=== PATIENT | male | born 1950 | race African-American/Black ===

== ENCOUNTER 2019-09-08 05:55 | Inpatient (IN) | payer MEDICARE ==
[2019-09-08] MEDS ORDERED: Albumin 5% 500 ML ONE (06:13)
[2019-09-08] MEDS ORDERED: Midazolam HCl 2 mg/2 ml Vial ONE (06:30)
[2019-09-08] MEDS ORDERED: Fentanyl 100 MCG/2 ML VIAL ONE (06:30)
[2019-09-08] MEDS ORDERED: Midazolam HCl 5 mg/5 ml Vial ONE (06:30)
[2019-09-08] MEDS ORDERED: Vecuronium 10 MG VIAL ONE ×2 (06:31→12:30)
[2019-09-08] MEDS ORDERED: Dexmedetomidine 200 MCG/2 ML VIAL ONE (06:31)
[2019-09-08] MEDS ORDERED: Heparin 10,000 UNITS/1 ML VIAL 30,000 UNITS in Sodium Chloride 0.9% 1,000 ML FS SCH (06:45)
[2019-09-08 07:34] LABS: Anion Gap 13 mmol/L (10-20); BUN (Urea Nitrogen) 8 mg/dL (8.4-25.7); Calc. Creatinine Clearance 87 mL/min (70-130); Calcium 8.4 mg/dL (7.8-10.44); Carbon Dioxide 22 mmol/L (23-31); Chloride 106 mmol/L (98-107); Estimated GFR-MDRD Greater than 90; Glucose 71 mg/dL (80-115); Potassium 4.4 mmol/L (3.5-5.1); Sodium 137 mmol/L (136-145)
[2019-09-08] MEDS ORDERED: Bupivacaine PF 0.5% 30 ML VIAL ONE (10:43)
[2019-09-08] MEDS ORDERED: EPINEPHrine 1 MG/ML AMP ONE (10:43)
[2019-09-08] MEDS ORDERED: Dexamethasone 20 MG/5 ML VIAL ONE ×2 (10:46→12:30)
[2019-09-08] MEDS ORDERED: Dexamethasone 4 mg/ml Vial ONE (10:46)
[2019-09-08] MEDS ORDERED: Guaifenesin DM 100-10/5 ML UDCUP PO PRN (11:28)
[2019-09-08] MEDS ORDERED: Mag-Al 1200 mg/1200 mg/30 ML UDCUP PO PRN (11:28)
[2019-09-08] MEDS ORDERED: Nitroglycerin 50 MG/250 ML BOT 250 ML IVPB PRN (11:28)
[2019-09-08] MEDS ORDERED: Morphine 2 MG/ML SYRINGE SLOW IVP PRN (11:28)
[2019-09-08] MEDS ORDERED: Potassium Chloride 20 MEQ/100 ML PREMIX BAG IVPB PRN (11:28)
[2019-09-08] MEDS ORDERED: Bisacodyl 10 MG SUPP PR PRN (11:28)
[2019-09-08] MEDS ORDERED: Promethazine HCl 25 MG/ML VIAL IM PRN (11:28)
[2019-09-08] MEDS ORDERED: hydrALAZINE 20 MG/ML VIAL SLOW IVP PRN (11:28)
[2019-09-08] MEDS ORDERED: Hetastarch 6% 500 ML 500 ML IVPB PRN (11:28)
[2019-09-08] MEDS ORDERED: Phenylephrine 10 MG/NS 250 ML 250 ML IVPB PRN (11:28)
[2019-09-08] MEDS ORDERED: Bisacodyl 5 MG TAB PO PRN (11:28)
[2019-09-08] MEDS ORDERED: Fentanyl 100 MCG/2 ML VIAL SLOW IVP PRN (11:28)
[2019-09-08] MEDS ORDERED: Magnesium 2 GM/50 ML 2 GM in Premix Bag 1 BAG IVPB SCH (11:30)
[2019-09-08] MEDS ORDERED: D5 1/2 NS w/20 mEq KCL 1,000 ML IV SCH (11:30)
[2019-09-08] MEDS ORDERED: Dextrose 50% Abboject 50 ML SYRINGE SLOW IVP PRN (11:47)
[2019-09-08] MEDS ORDERED: Dextrose 5% in Water 1,000 ML IV PRN (11:47)
[2019-09-08 12:08] LABS: #Eosinphils 0.2 thou/uL (0.0-0.7); #Lymphocytes 2.8 thou/uL (1.20-3.40); #Monocytes 0.9 thou/uL (0.11-0.59); #Neutrophils 12.9 thou/uL (1.40-6.50); %Basophils 0.1 % (0.0-1.0); %Eosinophils 1.4 % (0.0-10.0); %Lymphocytes 16.8 % (21.0-51.0); %Monocytes 5.5 % (0.0-10.0); %Neutrophils 76.2 % (42.0-75.0); Hemoglobin 11.6 g/dL (14.0-18.0); Mean Corpuscular HGB CONC 32.7 g/dL (32.0-36.0); Mean Corpuscular Hemoglobin 31.8 pg (27.0-31.0); Mean Corpuscular Volume 97.2 fL (78.0-98.0); Platelet Count 139 thou/uL (130-400); RBC Distribution Width 13.8 % (11.5-14.5); Red Blood Cell (RBC) Count 3.64 mill/uL (4.70-6.10); White Blood Cell (WBC) Count 16.9 thou/uL (4.8-10.8)
[2019-09-08 12:09] LABS: Actual Bicarbonate (HCO3a) 22.6 mEq/L (22-28); Base Excess (BEa) -3.8 mEq/L (-2.0 to +3.0); CO2 Tension 46.6 mmHg (35.0-45.0); Calcium, Ionized 1.05 mmol/L (1.12-1.30); Carboxyhemoglobin (COHb) 3.9 gm% (0.0-3.0); Hemoglobin (Hb) 12.1 g/dL (14.0-18.0); O2 Tension (PaO2) 88.6 mmHg (> 80.0); Potassium - ABG Lab 4.02 mmol/L (3.70-5.30)
[2019-09-08 12:10] LABS: Puncture Site LRA
[2019-09-08 12:17] LABS: INR-International Normal Ratio 1.5; PTT 29.2 SEC (22.9-36.1); Prothrombin Time 17.7 SEC (12.0-14.7)
[2019-09-08 12:29] LABS: Anion Gap 11 mmol/L (10-20); BUN (Urea Nitrogen) 9 mg/dL (8.4-25.7); Calc. Creatinine Clearance 97 mL/min (70-130); Calcium 7.4 mg/dL (7.8-10.44); Carbon Dioxide 25 mmol/L (23-31); Chloride 108 mmol/L (98-107); Estimated GFR-MDRD Greater than 90; Glucose 94 mg/dL (80-115); Potassium 4.1 mmol/L (3.5-5.1); Sodium 140 mmol/L (136-145)
[2019-09-08] MEDS ORDERED: Magnesium Sulfate 1 GM/2 ML VIAL ONE (12:30)
[2019-09-08] MEDS ORDERED: Glycopyrrolate 0.2 MG/ML 5 ML SYRINGE ONE (12:30)
[2019-09-08] MEDS ORDERED: PHENYLEPHRINE-NS 100 MCG/ML 10 ML SYRINGE ONE (12:30)
[2019-09-08] MEDS ORDERED: Protamine Sulfate 250 MG/25 ML VIAL ONE (12:30)
[2019-09-08] MEDS ORDERED: Heparin 30,000 units/30 ml VIAL ONE (12:30)
[2019-09-08] MEDS ORDERED: Potassium Chloride 60 MEQ/30 ML VIAL ONE (12:30)
[2019-09-08] MEDS ORDERED: Nitroglycerin 50 MG/250 ML BOT ONE (12:30)
[2019-09-08] MEDS ORDERED: Thrombin 5000 UNITS/5 ML VIAL ONE (12:30)
[2019-09-08] MEDS ORDERED: Lidocaine 2% PF 5 ML VIAL ONE (12:30)
[2019-09-08] MEDS ORDERED: EPHEDRINE 25 MG/5 ML SYRINGE ONE (12:30)
[2019-09-08] MEDS ORDERED: Lidocaine 1% PF 5 ML VIAL ONE ×2 (12:30)
[2019-09-08] MEDS ORDERED: Calcium Chloride 1 GM/10 ML Abboject SYRINGE ONE (12:30)
[2019-09-08] MEDS ORDERED: Heparin 5,000 UNITS/ML VIAL ONE (12:30)
[2019-09-08] MEDS ORDERED: Cardioplegic Soln 1,000 ML BAG ONE (12:30)
[2019-09-08] MEDS ORDERED: Aminocaproic Acid 5 GM/20 ML VIAL ONE (12:30)
[2019-09-08] MEDS ORDERED: Ondansetron PF 4 MG/2 ML Vial ONE (12:30)
[2019-09-08] MEDS ORDERED: Papaverine 60 MG/2 ML VIAL ONE (12:30)
[2019-09-08] MEDS ORDERED: Sodium Bicarb 50 MEQ/50 ML Abboject 8.4% SYRINGE ONE (12:30)
[2019-09-08] MEDS ORDERED: Ketorolac Tromethamine 30 MG/ML VIAL ONE (12:30)
--- NOTE | 2019-09-08 12:34 | OP ---
DATE OF PROCEDURE: 09/08/2019 PREOPERATIVE DIAGNOSES: Coronary artery disease/hypertension/dyslipidemia/chronic obstructive pulmonary disease. POSTOPERATIVE DIAGNOSIS: Coronary artery disease/hypertension/dyslipidemia/chronic obstructive pulmonary disease. PROCEDURES PERFORMED: Coronary artery bypass grafting x3; 1. Left internal mammary artery to 3.0 mm distal left anterior descending - good conduit and target. 2. Reverse saphenous vein to 4.0 mm obtuse marginal - good conduit with diffusely diseased target. 3. Reverse saphenous vein to 4.0 mm right coronary artery - good conduit with diffusely diseased target. ANESTHESIA: General endotracheal anesthesia - Dr. Cecilia Rudd. PUMP TIME: 63 minutes. CROSS-CLAMP TIME: 39 minutes. LOW-CORE TEMPERATURE: 34 degrees Celsius. SPINNER CONCRETE PIPE: Christiana Pearce. DRAINS: 24-Syrian chest tubes x2. DRIPS: None. TRANSFUSIONS: None. DESCRIPTION OF PROCEDURE: After consent was obtained, the patient was brought to the operating room and placed in supine position on the operating room table. Appropriate central line and monitors were placed and general endotracheal anesthesia was induced. Chest, abdomen, and legs were prepped and draped in usual sterile fashion. Greater saphenous vein was harvested from the left lower extremity utilizing an endoscopic technique. Wounds were irrigated and closed in layers. Median sternotomy was performed. Left internal mammary artery was harvested as a pedicle graft. The patient was systemically heparinized. Distal pedicle was divided and infused with papaverine. Thymic fat and pericardium were divided with electrocautery. Pericardial stay sutures were placed. Aortic and atrial cannulation was performed. After adequate heparinization, retrograde prime was performed and the patient was placed on cardiopulmonary bypass. Distal targets were marked. Aortic cross-clamp was applied and cardioplegic arrest obtained. 1 L of antegrade cold [place] cardioplegia was given. Topical cold solution was used. Reverse saphenous vein was anastomosed to distal RCA in end-to-side fashion with running 7-0 Prolene suture. Anastomosis was tested and was hemostatic. Reverse saphenous vein was anastomosed to the OM in end-to-side fashion with running 7-0 Prolene suture. Anastomosis was tested and was hemostatic. The mammary artery was brought through a window in the pericardium and anastomosed to the distal LAD in end-to-side fashion with running 7-0 Prolene suture. On release of mammary clamps, good hooding of the anastomosis and good distal flow. Pedicle was secured with interrupted 6-0 Prolene suture. Cross-clamp was removed and partial occluding clamp placed. Saphenous veins were anastomosed to individual punch sites in the aorta with running 6-0 Prolene suture. Partial occluding clamp was removed and graft was deaired. Anastomoses were inspected for hemostasis, which was good. The patient was warmed and weaned from cardiopulmonary bypass. After resumption of sinus rhythm, good hemodynamics, temperature greater than 36.5, bypass was discontinued. Transfusion was given. Decannulation was performed and pursestring suture secured. Protamine was administered. 24-Syrian chest tubes x2 were placed in mediastinum. Sternum was treated with vancomycin paste. After adequate hemostasis has been obtained, the sternum was closed with #7 wire. Sternum was treated with platelet-rich plasma, wires twisted and buried, wounds irrigated, treated with platelet-poor plasma and closed in multiple layers. Needle, sponge, and instrument counts were all reported as correct at the end of the procedure. The patient tolerated the procedure well, was transferred to the intensive care unit in stable, but critical condition. Job ID: [id number]
[2019-09-08] MEDS: Ketorolac Tromethamine 30 MG/ML VIAL IVP SCH ×3 (13:00→23:46)
[2019-09-08] MEDS ORDERED: Prevnar 13-Val Conj/PF 0.5 ML SYRINGE IM ONE (13:15)
[2019-09-08] MEDS ORDERED: FLU VACC TS2019-20(65YR UP)/PF 180 MCG/0.5 ML SYRINGE IM ONE (13:15)
--- NOTE | 2019-09-08 13:39 | RAD ---
PORTABLE CHEST ONE VIEW: 09/08/19 at 11:44 a.m. HISTORY: Postop open heart surgery. FINDINGS/IMPRESSION: There are changes of median sternotomy. There is a left sided chest tube and right sided subclavian c entral line with tip in the projection of the cavoatrial junction. The heart size is normal. The lung s are expanded without lobar consolidation, pneumothoraces, or pleural effusions. There are postop ch anges and metallic hardware in the right shoulder. POS: TPC
[2019-09-08] MEDS: CEFAZOLIN 2 GM in Premix Bag 1 BAG IVPB SCH ×2 (15:15→23:45)
[2019-09-08] MEDS: Insulin Regular 300 UNITS/3 ML VIAL SC PRN ×3 (15:43→23:52)
[2019-09-08] MEDS: Fentanyl 100 MCG/2 ML VIAL SLOW IVP PRN (15:51)
--- NOTE | 2019-09-08 15:58 | EKG ---
Test Reason : POST CABG Blood Pressure : / mmHG Vent. Rate : 064 BPM Atrial Rate : 064 BPM P-R Int : 310 ms QRS Dur : 170 ms QT Int : 518 ms P-R-T Axes : 080 -74 056 degrees QTc Int : 534 ms Sinus rhythm with marked sinus arrhythmia with 1st degree A-V block Right bundle branch block Left anterior fascicular block Bifascicular block Abnormal ECG No previous ECGs available Confirmed by DYANA ROA, DR. Baca ([id number]) on 09/08/2019 3:58:17 PM Referred By: Chika MARQUEZ Confirmed By:DR. Phuong TURPIN MD
[2019-09-08] MEDS: traMADol HCl 50 MG TAB PO PRN ×2 (16:28→22:04)
[2019-09-08 17:58] LABS: Hemoglobin 11.9 g/dL (14.0-18.0)
[2019-09-08 18:13] LABS: Potassium 4.5 mmol/L (3.5-5.1)
[2019-09-08] MEDS ORDERED: Famotidine/PF 20 mg/2ml Vial SLOW IVP SCH (21:00)
[2019-09-08] MEDS: Ondansetron PF 4 MG/2 ML Vial IVP PRN (22:05)
[2019-09-09] MEDS: Insulin Regular 300 UNITS/3 ML VIAL SC PRN (03:43)
[2019-09-09 04:01] LABS: #Lymphocytes 1.3 thou/uL (1.20-3.40); #Monocytes 1.1 thou/uL (0.11-0.59); #Neutrophils 9.2 thou/uL (1.40-6.50); %Basophils 0.1 % (0.0-1.0); %Eosinophils 0.1 % (0.0-10.0); %Lymphocytes 11.3 % (21.0-51.0); %Monocytes 9.2 % (0.0-10.0); %Neutrophils 79.4 % (42.0-75.0); Mean Corpuscular HGB CONC 33.1 g/dL (32.0-36.0); Mean Corpuscular Hemoglobin 32.3 pg (27.0-31.0); Mean Corpuscular Volume 97.6 fL (78.0-98.0); Mean Platelet Volume 7.6 fL (7.4-10.4); Platelet Count 134 thou/uL (130-400); RBC Distribution Width 13.8 % (11.5-14.5); Red Blood Cell (RBC) Count 3.41 mill/uL (4.70-6.10); White Blood Cell (WBC) Count 11.6 thou/uL (4.8-10.8)
[2019-09-09 04:16] LABS: Anion Gap 9 mmol/L (10-20); BUN (Urea Nitrogen) 15 mg/dL (8.4-25.7); Calc. Creatinine Clearance 71 mL/min (70-130); Calcium 7.5 mg/dL (7.8-10.44); Carbon Dioxide 25 mmol/L (23-31); Chloride 106 mmol/L (98-107); Estimated GFR-MDRD 81; Glucose 125 mg/dL (80-115); Potassium 4.3 mmol/L (3.5-5.1); Sodium 136 mmol/L (136-145)
[2019-09-09] MEDS: Ketorolac Tromethamine 30 MG/ML VIAL IVP SCH ×3 (05:58→18:06)
[2019-09-09] MEDS ORDERED: Guaifenesin DM 100-10/5 ML UDCUP PO PRN (07:24)
[2019-09-09] MEDS ORDERED: diphenhydrAMINE 25 MG CAP PO PRN (07:24)
[2019-09-09] MEDS ORDERED: Zolpidem Tartrate 5 MG TAB PO PRN (07:24)
[2019-09-09] MEDS ORDERED: Mag-Al 1200 mg/1200 mg/30 ML UDCUP PO PRN (07:24)
[2019-09-09] MEDS ORDERED: Bisacodyl 10 MG SUPP PR PRN (07:24)
[2019-09-09] MEDS ORDERED: Mineral Oil ENEMA PR PRN (07:24)
[2019-09-09] MEDS ORDERED: Artificial Tears 18 DROP/0.9 ML EA EYE PRN (07:24)
[2019-09-09] MEDS ORDERED: Bisacodyl 5 MG TAB PO PRN (07:24)
[2019-09-09] MEDS ORDERED: Nitroglycerin 0.4 MG TAB (25 Tab Bottle) SL PRN (07:24)
[2019-09-09] MEDS: CEFAZOLIN 2 GM in Premix Bag 1 BAG IVPB SCH (08:04)
--- NOTE | 2019-09-09 08:51 | RAD ---
PORTABLE CHEST: HISTORY: Postop open heart surgery. COMPARISON: Prior day's exam. FINDINGS: Heart size is within normal limits. There is postop sternotomy change. Chest tubes remain unchanged in position. Right subclavian line is unchanged. IMPRESSION: Stable chest. POS: TPC
[2019-09-09] MEDS ORDERED: Aspirin 325 MG TAB PO SCH (09:00)
[2019-09-09] MEDS ORDERED: CEFAZOLIN 2 GM in Premix Bag 1 BAG IVPB SCH (09:00)
[2019-09-09] MEDS: Pantoprazole 40 MG GRANULES PACKET PO SCH (09:08)
[2019-09-09] MEDS: Aspirin 81 mg Enteric Coated Tablet PO SCH (09:08)
[2019-09-09] MEDS: traMADol HCl 50 MG TAB PO PRN ×2 (09:13→22:39)
[2019-09-09] MEDS: Magnesium 2 GM/50 ML 2 GM in Premix Bag 1 BAG IVPB SCH (09:15)
[2019-09-09] MEDS ORDERED: DOPamine 400 MG/D5W 250 ML 250 ML ONE (10:48)
[2019-09-09] MEDS: DOPamine 400 MG/D5W 250 ML 250 ML IVPB SCH ×2 (10:50→22:31)
[2019-09-09] MEDS: Ondansetron PF 4 MG/2 ML Vial IVP PRN ×2 (10:59→18:08)
[2019-09-09] MEDS ORDERED: Promethazine HCl 12.5 MG in Sodium Chloride 0.9% 50 ML IVPB PRN (11:12)
[2019-09-09] MEDS ORDERED: Sodium Chloride 0.9% 500 ML IVPB SCH (11:15)
--- NOTE | 2019-09-09 11:43 | RAD ---
PORTABLE CHEST: HISTORY: Shortness of breath. COMPARISON: Prior day's study. FINDINGS: Heart size is enlarged with postop sternotomy changes. Right subclavian line is present, catheter ti p overlying the superior vena cava. Parenchymal lung changes are felt to be similar to the previous exam given differences in technique. IMPRESSION: Stable chest. POS: TPC
[2019-09-09] MEDS: Isoproterenol 2 MG in Dextrose 5% in Water 500 ML IVPB SCH (12:15)
[2019-09-09] MEDS: Fentanyl 100 MCG/2 ML VIAL SLOW IVP PRN ×2 (12:50→18:07)
--- NOTE | 2019-09-09 13:40 | CON ---
DATE OF CONSULTATION: Critical care note. TIME: 45 minutes. HISTORY OF PRESENT ILLNESS: The patient is a 69-year-old gentleman, who recently underwent coronary artery bypass graft surgery and was noted to become weak and hypotensive. The patient has previous history of coronary artery disease. He had underwent a recent cardiac catheterization and found to have normal left ventricular systolic function. He had a stent in the LAD with 90% stenosis, left circumflex artery had 80% stenosis, and the right coronary artery had 80% stenosis. The patient underwent coronary artery bypass surgery. The patient was on telemetry when he suddenly developed hypotension and a slow heart rate. The patient became weak and placed back in the ICU. The patient denies having any chest pain. The patient is groggy and is unable to give a coherent history. PAST MEDICAL HISTORY: 1. CAD. 2. HTN . 3. Hyperlipidemia. 4. COPD. PAST SURGICAL HISTORY: Tonsillectomy, shoulder surgery, and knee surgery. SOCIAL HISTORY: Long history of tobacco abuse. MEDICATIONS: 1. Aspirin 81. 2. Lisinopril/HCTZ 20/12.5 daily. 3. Metoprolol 25 mg p.o. b.i.d. 4. Plavix 75 daily. 5. Imdur 30 q.a.m. 6. Lipitor 80 at bedtime. PHYSICAL EXAMINATION: GENERAL: A well-developed gentleman, in no acute distress. VITAL SIGNS: Blood pressure 116/58, heart rate 58. NECK: No jugular venous distention. LUNGS: Clear to auscultation. HEART: Regular rate and rhythm. Normal S1 and S2. ABDOMEN: Distended. EXTREMITIES: Mild edema. LABORATORY RESULTS: White blood cell count 11.6, hemoglobin 11.0, hematocrit 33.3, platelets 134. Sodium 136, potassium 4.3, chloride 106, bicarbonate 25, BUN 15, creatinine 1.1. DIAGNOSTIC DATA: EKG reveals normal sinus rhythm with a second-degree AV block Mobitz type 1. IMPRESSION: 1. Mobitz type 1 2nd atrioventricular block. 2. Hypotension. 3. Status post coronary artery bypass graft. 4. Dyslipidemia. 5. Chronic obstructive pulmonary disease. This gentleman developed acute hypotension and bradycardia. He is in a second- degree heart block. The patient was started on dobutamine. I will add Isuprel to maintain his heart rate over 60. From a cardiac standpoint, his metoprolol will be discontinued. He will be monitored in ICU. Job ID: [id number] MTDD
[2019-09-09] MEDS ORDERED: Sodium Chloride 0.9% 1,000 ML IV SCH ×2 (14:00)
[2019-09-09] MEDS: Atorvastatin Calcium 40 MG TAB PO SCH (22:31)
[2019-09-09] MEDS: Tamsulosin HCl 0.4 MG CAP PO SCH (22:31)
[2019-09-10] MEDS: Ketorolac Tromethamine 30 MG/ML VIAL IVP SCH ×5 (00:08→23:05)
[2019-09-10] MEDS: Isoproterenol 2 MG in Dextrose 5% in Water 500 ML IVPB SCH (01:34)
[2019-09-10] MEDS: DOPamine 400 MG/D5W 250 ML 250 ML IVPB SCH (10:46)
[2019-09-10] MEDS: Aspirin 81 mg Enteric Coated Tablet PO SCH (10:47)
[2019-09-10] MEDS: Magnesium 2 GM/50 ML 2 GM in Premix Bag 1 BAG IVPB SCH (10:47)
[2019-09-10] MEDS: Pantoprazole 40 MG GRANULES PACKET PO SCH (11:26)
[2019-09-10] MEDS: Atorvastatin Calcium 40 MG TAB PO SCH (20:05)
[2019-09-10] MEDS: Tamsulosin HCl 0.4 MG CAP PO SCH (20:05)
[2019-09-11] MEDS: Isoproterenol 2 MG in Dextrose 5% in Water 500 ML IVPB SCH (00:06)
[2019-09-11] MEDS: DOPamine 400 MG/D5W 250 ML 250 ML IVPB SCH (00:32)
[2019-09-11] MEDS: Ketorolac Tromethamine 30 MG/ML VIAL IVP SCH ×2 (05:10→12:06)
[2019-09-11] MEDS: Aspirin 81 mg Enteric Coated Tablet PO SCH (08:26)
[2019-09-11] MEDS: traMADol HCl 50 MG TAB PO PRN (10:18)
[2019-09-11] MEDS ORDERED: Gentamicin 80 MG/2 ML VIAL ONE (13:56)
[2019-09-11] MEDS ORDERED: CEFAZOLIN 1 GM VIAL ONE (13:56)
[2019-09-11] MEDS ORDERED: Midazolam HCl 2 mg/2 ml Vial ONE (14:47)
[2019-09-11] MEDS ORDERED: Lidocaine 1% (PF) 30 ML VIAL ONE (14:53)
--- NOTE | 2019-09-11 16:43 | RAD ---
Chest one view HISTORY: Cardiac pacer placement. Dyspnea. COMPARISON: 09/09/2019. FINDINGS: Cardiac silhouette is magnified and upper limits of normal in size. Pulmonary vasculature a lso upper limits of normal. Mediastinum is midline with postoperative changes and a right subclavian central venous catheter. A new dual lead left subclavian cardiac electronic device is in place with leads overlying the right atrium and right ventricle. No evidence of pneumothorax. Hazy opacity at each lung base has the appearance of pleural fluid and atelectasis. IMPRESSION : New left subclavian cardiac pacer in good radiographic position. Bilateral pleural fluid and bibasilar atelectasis. Other findings are stable.
[2019-09-11] MEDS: Tamsulosin HCl 0.4 MG CAP PO SCH (20:38)
[2019-09-11] MEDS: Atorvastatin Calcium 40 MG TAB PO SCH (20:38)
--- NOTE | 2019-09-11 21:33 | EKG ---
Test Reason : STAT BRADYCARDIA Blood Pressure : / mmHG Vent. Rate : 052 BPM Atrial Rate : 052 BPM P-R Int : 208 ms QRS Dur : 154 ms QT Int : 516 ms P-R-T Axes : 067 -32 024 degrees QTc Int : 479 ms Sinus bradycardia Left axis deviation Non-specific intra-ventricular conduction block Abnormal ECG When compared with ECG of 08-SEP-2019 11:54, LA interval has decreased Non-specific intra-ventricular conduction block has replaced Right bundle branch block Confirmed by DYANA ROA, DR. Baca ([id number]) on 09/11/2019 9:33:32 PM Referred By: RENNY MARQUEZ Confirmed By:DR. Phuong TURPIN MD
--- NOTE | 2019-09-11 21:43 | EKG ---
Test Reason : Blood Pressure : / mmHG Vent. Rate : 049 BPM Atrial Rate : 043 BPM P-R Int : 000 ms QRS Dur : 120 ms QT Int : 478 ms P-R-T Axes : 000 -51 042 degrees QTc Int : 431 ms Sinus bradycardia with 1st degree A-V block with frequent Premature atrial complexes Left anterior fascicular block Incomplete right bundle branch block Abnormal ECG When compared with ECG of 08-SEP-2019 19:40, (Unconfirmed) QRS duration has decreased QT has shortened Confirmed by DYANA ROA, DR. Baca ([id number]) on 09/11/2019 9:42:52 PM Referred By: JIMMY Confirmed By:DR. Phuong TURPIN MD
[2019-09-12] MEDS: traMADol HCl 50 MG TAB PO PRN (02:53)
[2019-09-12] MEDS: Acetaminophen 325 MG TAB PO PRN (04:48)
[2019-09-12 05:49] VITALS: BMI 23.8
[2019-09-12] MEDS: Aspirin 81 mg Enteric Coated Tablet PO SCH (09:20)
[2019-09-12] MEDS: Atorvastatin Calcium 40 MG TAB PO SCH (23:04)
[2019-09-12] MEDS: Tamsulosin HCl 0.4 MG CAP PO SCH (23:05)
[2019-09-13] MEDS: Acetaminophen 325 MG TAB PO PRN (01:41)
[2019-09-13] MEDS ORDERED: Metoprolol Tartrate 25 MG TAB PO SCH (09:00)
[2019-09-13] MEDS: Aspirin 81 mg Enteric Coated Tablet PO SCH (09:56)
[2019-09-13] MEDS: traMADol HCl 50 MG TAB PO PRN (10:04)
--- NOTE | 2019-09-13 15:42 | CCL ---
DATE OF PROCEDURE: 09/11/19 This is a 69-year-old gentleman who is status post bypass surgery approximately two to three days ago who developed second degree heart block type II with severe bradycardia requiring chronotropic suppo rt with Dopamine. He was advised to undergo a dual chamber pacemaker insertion. He was taken to the [facility] where he underwent the procedure today without difficulties or c omplications. He was prepped and draped in a sterile fashion and the device was easily implanted afte r using sterile technique. The full dictated note can be found in the patient's chart. He was implant ed with a dual chamber pacemaker from [employer], an [place] XT dual chamber pacemaker with two screw-in leads. One in the atrium and one in the ventricle. There were no complications or difficulties encou ntered. The patient was given 2 mg of IV versed for conscious sedation throughout the procedure. Was monitored by an independent observer present for heart rate, blood pressure and O2 saturation and rem ained stable throughout the procedure. Pacemaker was set with the upper rate at 130 and the lower rat e was set at 60.
[2019-09-13 15:59] VITALS: BP 124/74; TEMP 98.7
--- NOTE | 2019-09-13 22:43 | EKG ---
Test Reason : TIMED Blood Pressure : / mmHG Vent. Rate : 076 BPM Atrial Rate : 076 BPM P-R Int : 152 ms QRS Dur : 160 ms QT Int : 460 ms P-R-T Axes : 032 -25 016 degrees QTc Int : 517 ms Electronic ventricular pacemaker When compared with ECG of 09-SEP-2019 11:18, Electronic ventricular pacemaker has replaced Sinus rhythm Vent. rate has increased BY 27 BPM Confirmed by Hamlet DANIELS ([id number]) on 09/13/2019 10:43:12 PM Referred By: Confirmed By:Hamlet DANIELS
--- NOTE | 2019-09-14 14:27 | DIS ---
DATE OF ADMISSION: 09/08/2019 DATE OF DISCHARGE: 09/13/2019 DIAGNOSES: 1. Coronary artery disease. 2. Hypertension. 3. Hyperlipidemia. 4. Chronic obstructive pulmonary disease. 5. Benign prostatic hyperplasia. 6. Postoperative heart block. PROCEDURES: 1. Coronary artery bypass grafting x3;. a. Left internal mammary artery to left anterior descending. b. Reverse saphenous vein to diagonal-1, obtuse marginal, and distal right coronary artery. 2. Permanent pacemaker placement. DESCRIPTION OF HOSPITAL STAY: Mr. Enriquez was admitted for an elective coronary artery bypass grafting. Initially, did well postoperatively, but on the first postoperative day, he can experience heart block. He was maintained on dopamine and Isuprel, which maintained his heart rate, but on weaning these drugs, his heart rate dropped back down into the 30s and 40s. He was symptomatic with this, therefore went for permanent pacemaker placement. He did well after pacemaker placement, maintained good hemodynamics, was discharged to home in good condition and follow up with me in 2 weeks. DISCHARGE MEDICATIONS: Noted in the discharge summary. Job ID: [id number]
== END 2019-09-13 16:08 | disposition home or self-care (01) | DRG 236 ==
LOC: SURG A 05:55 → CCU 11:44 → 2NO 09-09 08:24 → CCU 09-09 10:50 → 2NO 09-11 16:14
PROVIDERS: ADMIT Thoracic Surgery (Cardiothoracic Vascular Surgery); ATTEND Thoracic Surgery (Cardiothoracic Vascular Surgery)
PROC: 02100Z9 Bypass Coronary Artery, One Artery from Left Internal Mammary, Open Approach (ICD-10-PCS; principal; 2019-09-08)
PROC: 021109W Bypass Coronary Artery, Two Arteries from Aorta with Autologous Venous Tissue, Open Approach (ICD-10-PCS; 2019-09-08)
PROC: 06BQ4ZZ Excision of Left Saphenous Vein, Percutaneous Endoscopic Approach (ICD-10-PCS; 2019-09-08)
PROC: 5A1221Z Performance of Cardiac Output, Continuous (ICD-10-PCS; 2019-09-08)
PROC: 0JH606Z Insertion of Pacemaker, Dual Chamber into Chest Subcutaneous Tissue and Fascia, Open Approach (ICD-10-PCS; 2019-09-08)
PROC: 02H63JZ Insertion of Pacemaker Lead into Right Atrium, Percutaneous Approach (ICD-10-PCS; 2019-09-08)
PROC: 02HK3JZ Insertion of Pacemaker Lead into Right Ventricle, Percutaneous Approach (ICD-10-PCS; 2019-09-08)
DX: I25.10 Atherosclerotic heart disease of native coronary artery without angina pectoris (principal); I10 Essential (primary) hypertension; J44.9 Chronic obstructive pulmonary disease, unspecified; I95.9 Hypotension, unspecified; I44.1 Atrioventricular block, second degree; E78.5 Hyperlipidemia, unspecified
CPT/HCPCS: 33208; 36416; 36430; 71045; 80048; 82805; 85025; 85610; 85730; 86850; 86900; 86901; 93005; 93010; 93306; 93798; 99152; 99153; C1785; C1898; J0171; J0690; J1100; J1265; J1580; J1642; J1644; J1815; J1885; J2001; J2250; J2405; J2440; J2550; J2720; J3010; J3370; J3475; J3480; J7070; P9045; S0017; S0020; S0028

== ENCOUNTER 2021-07-21 09:18 | Outpatient (CLI) | payer MEDICARE ==
[2021-07-21 11:14] LABS: Hemoglobin 14.5 g/dL (13.5-17.5); Mean Corpuscular HGB CONC 33.4 g/dL (32.0-36.0); Mean Corpuscular Hemoglobin 30.9 pg (27.0-33.0); Mean Corpuscular Volume 92.5 fl (81.2-95.1); Mean Platelet Volume 9.7 fl (7.4-10.4); Platelet Count 240 10x3/uL (150-450); RBC Distribution Width 14.3 % (11.5-14.5); Red Blood Cell (RBC) Count 4.69 10x6/uL (4.32-5.72); White Blood Cell (WBC) Count 6.4 10x3/uL (3.5-10.5)
[2021-07-21 11:27] LABS: INR-International Normal Ratio 1.2; PTT 28.8 sec (22.0-33.0); Prothrombin Time 13.4 sec (9.5-12.1)
[2021-07-21 11:38] LABS: Anion Gap 14 mmol/L (10-20); BUN (Urea Nitrogen) 12 mg/dL (8.4-25.7); Calc. Creatinine Clearance 0 mL/min (70-130); Calcium 9.1 mg/dL (7.8-10.44); Carbon Dioxide 27 mmol/L (23-31); Chloride 101 mmol/L (98-107); Glucose 97 mg/dL (80-115); Potassium 4.1 mmol/L (3.5-5.1); Sodium 138 mmol/L (136-145)
[2021-07-21 19:25] LABS: SARS-CoV-2 PCR by NAA Not Detected (NotDetected)
== END 2021-07-21 09:19 | disposition home or self-care (01) ==
LOC: LABBT 09:18
PROVIDERS: ATTEND Surgery
DX: Z01.818 Encounter for other preprocedural examination (principal); M54.16 Radiculopathy, lumbar region; M48.061 Spinal stenosis, lumbar region without neurogenic claudication; Z20.822 Contact with and (suspected) exposure to COVID-19
CPT/HCPCS: 80048; 85027; 85610; 85730; 93005; U0003; U0005; 93010

== ENCOUNTER 2021-07-24 05:05 | Inpatient (IN) | payer MEDICARE ==
[2021-07-17 10:10] VITALS: BMI 25.0
[2021-07-24] MEDS ORDERED: Thrombin 5000 UNITS/5 ML VIAL ONE (06:43)
[2021-07-24] MEDS ORDERED: Fentanyl 250 MCG/5 ML VIAL ONE (07:12)
[2021-07-24] MEDS ORDERED: Dexmedetomidine 200 MCG/2 ML VIAL ONE (07:12)
[2021-07-24] MEDS ORDERED: ceFAZolin 2 GM/Dextrose 50 ML IVPB ONE (07:25)
[2021-07-24] MEDS ORDERED: Glycopyrrolate 0.2 MG/ML 5 ML SYRINGE ONE (07:34)
[2021-07-24] MEDS ORDERED: PHENYLEPHRINE-NS 100 MCG/ML 10 ML SYRINGE ONE (07:34)
[2021-07-24] MEDS ORDERED: ePHEDrine 50 MG/ML VIAL ONE (07:34)
[2021-07-24] MEDS ORDERED: Ondansetron PF 4 MG/2 ML Vial ONE (07:34)
[2021-07-24] MEDS ORDERED: PROPOFOL 200 MG/20 ML VIAL ONE (07:34)
[2021-07-24] MEDS ORDERED: Lidocaine 1% PF 5 ML VIAL ONE (07:34)
[2021-07-24] MEDS ORDERED: Rocuronium Bromide 10 MG/ML (10ML VIAL) ONE (07:34)
[2021-07-24] MEDS ORDERED: PACU-Morphine 4MG/ML VIAL SLOW IVP PRN (10:25)
[2021-07-24] MEDS ORDERED: HYDROmorphone 2 MG/ML VIAL SLOW IVP PRN (10:25)
[2021-07-24] MEDS ORDERED: Ondansetron HCl/PF 4 MG/2 ML Vial IVP PRN (10:25)
[2021-07-24] MEDS ORDERED: Promethazine HCl 25 MG/ML VIAL IM PRN (10:25)
[2021-07-24] MEDS ORDERED: Promethazine HCl 25 MG/ML VIAL IVPB PRN (10:25)
[2021-07-24] MEDS ORDERED: Morphine Sulfate 2 MG/ML SYRINGE SLOW IVP PRN (10:25)
[2021-07-24] MEDS ORDERED: Ondansetron PF 4 MG/2 ML Vial IVP PRN (11:33)
[2021-07-24] MEDS ORDERED: traMADol HCl 50 MG TAB PO PRN (11:33)
[2021-07-24] MEDS ORDERED: Acetaminophen 325 MG TAB PO PRN (11:33)
[2021-07-24] MEDS ORDERED: hydrALAZINE 20 MG/ML VIAL SLOW IVP PRN (11:38)
[2021-07-24] MEDS: Sodium Chloride 0.9% 1,000 ML IV SCH (11:45)
[2021-07-24] MEDS ORDERED: Fentanyl 100 MCG/2 ML VIAL ONE (11:55)
[2021-07-24] MEDS ORDERED: Pregabalin 50 MG CAP PO SCH (15:00)
[2021-07-24] MEDS: HYDROcodone/Acetaminophen 7.5/325 mg Tablet PO PRN ×2 (15:17→20:49)
[2021-07-24] MEDS: ceFAZolin 2 GM/Dextrose 50 ML 2 GM in Premix Bag 1 BAG IVPB SCH (16:30)
[2021-07-24] MEDS: Morphine 4 MG/ML VIAL SLOW IVP PRN (18:47)
[2021-07-24] MEDS: Atorvastatin Calcium 40 MG TAB PO SCH (20:08)
[2021-07-24] MEDS: Tamsulosin HCl 0.4 MG CAP PO SCH (20:09)
[2021-07-24] MEDS: Carvedilol 6.25 MG TAB PO SCH (20:09)
[2021-07-24] MEDS ORDERED: Metoprolol Tartrate 25 MG TAB PO SCH (21:00)
[2021-07-25] MEDS: ceFAZolin 2 GM/Dextrose 50 ML 2 GM in Premix Bag 1 BAG IVPB SCH
[2021-07-25] MEDS: Sodium Chloride 0.9% 1,000 ML IV SCH ×2 (00:19→17:31)
[2021-07-25 07:02] LABS: #Lymphocytes 1.7 thou/uL (1.20-3.40); #Neutrophils 7.8 thou/uL (1.40-6.50); %Basophils 0.2 % (0.0-1.0); %Eosinophils 0.3 % (0.0-10.0); %Lymphocytes 16.1 % (21.0-51.0); %Monocytes 9.8 % (0.0-10.0); %Neutrophils 73.6 % (42.0-75.0); Hemoglobin 13.2 g/dL (14.0-18.0); Mean Corpuscular HGB CONC 33.2 g/dL (32.0-36.0); Mean Corpuscular Hemoglobin 31.9 pg (27.0-31.0); Mean Corpuscular Volume 96.1 fL (78.0-98.0); Platelet Count 186 thou/uL (130-400); RBC Distribution Width 12.7 % (11.5-14.5); Red Blood Cell (RBC) Count 4.13 mill/uL (4.70-6.10); White Blood Cell (WBC) Count 10.6 thou/uL (4.8-10.8)
[2021-07-25] MEDS ORDERED: HYDROmorphone 2 MG/ML VIAL ONE (07:16)
[2021-07-25 07:19] LABS: Anion Gap 11 mmol/L (10-20); BUN (Urea Nitrogen) 13 mg/dL (8.4-25.7); Calc. Creatinine Clearance 84 mL/min (70-130); Calcium 8.7 mg/dL (7.8-10.44); Carbon Dioxide 26 mmol/L (23-31); Chloride 101 mmol/L (98-107); Glucose 112 mg/dL (80-115); Potassium 4.2 mmol/L (3.5-5.1); Sodium 134 mmol/L (136-145)
[2021-07-25] MEDS: HYDROcodone/Acetaminophen 7.5/325 mg Tablet PO PRN ×3 (07:54→20:39)
[2021-07-25] MEDS: Carvedilol 6.25 MG TAB PO SCH ×2 (07:54→20:36)
[2021-07-25] MEDS: tiZANidine HCl 4 MG TAB PO PRN ×2 (08:02→17:49)
[2021-07-25] MEDS: Morphine 4 MG/ML VIAL SLOW IVP PRN ×3 (10:43→13:43)
[2021-07-25] MEDS ORDERED: Ketorolac Tromethamine 30 MG/ML VIAL IVP PRN (11:26)
[2021-07-25] MEDS: Atorvastatin Calcium 40 MG TAB PO SCH (20:35)
[2021-07-25] MEDS: Tamsulosin HCl 0.4 MG CAP PO SCH (20:36)
[2021-07-26] MEDS: Sodium Chloride 0.9% 1,000 ML IV SCH ×2 (02:44→15:55)
[2021-07-26] MEDS: Acetaminophen/Codeine 30-300mg Tablet PO PRN ×3 (03:34→20:56)
[2021-07-26] MEDS: HYDROcodone/Acetaminophen 7.5/325 mg Tablet PO PRN ×4 (06:36→23:58)
[2021-07-26] MEDS: Carvedilol 6.25 MG TAB PO SCH ×2 (08:46→20:36)
[2021-07-26] MEDS: tiZANidine HCl 4 MG TAB PO PRN (15:59)
[2021-07-26] MEDS: Atorvastatin Calcium 40 MG TAB PO SCH (20:36)
[2021-07-26] MEDS: Lisinopril/Hydrochlorothiazide 20 mg/12.5 mg Tablet PO SCH (20:37)
[2021-07-26] MEDS: Tamsulosin HCl 0.4 MG CAP PO SCH (20:37)
[2021-07-27] MEDS: Sodium Chloride 0.9% 1,000 ML IV SCH ×2 (00:53→21:31)
[2021-07-27] MEDS: Acetaminophen/Codeine 30-300mg Tablet PO PRN ×3 (05:31→21:27)
[2021-07-27] MEDS: HYDROcodone/Acetaminophen 7.5/325 mg Tablet PO PRN ×3 (08:33→23:03)
[2021-07-27] MEDS: Carvedilol 6.25 MG TAB PO SCH ×2 (08:33→21:26)
[2021-07-27] MEDS: Atorvastatin Calcium 40 MG TAB PO SCH (21:26)
[2021-07-27] MEDS: Tamsulosin HCl 0.4 MG CAP PO SCH (21:27)
[2021-07-27] MEDS: Lisinopril/Hydrochlorothiazide 20 mg/12.5 mg Tablet PO SCH (21:27)
[2021-07-27] MEDS: tiZANidine HCl 4 MG TAB PO PRN (23:03)
[2021-07-28] MEDS: HYDROcodone/Acetaminophen 7.5/325 mg Tablet PO PRN (05:12)
[2021-07-28] MEDS: Carvedilol 6.25 MG TAB PO SCH (08:43)
[2021-07-28] MEDS: Sodium Chloride 0.9% 1,000 ML IV SCH (08:44)
[2021-07-28 12:44] VITALS: BP 147/76; TEMP 98.2
== END 2021-07-28 14:00 | disposition home health service (06) | DRG 520 ==
LOC: SDC 05:05 → SJJU 11:39 → OBSVTOIN 07-26 09:55
PROVIDERS: ADMIT Surgery; ATTEND Surgery
PROC: 0SB20ZZ Excision of Lumbar Vertebral Disc, Open Approach (ICD-10-PCS; principal; 2021-07-24)
PROC: 01NB0ZZ Release Lumbar Nerve, Open Approach (ICD-10-PCS; 2021-07-24)
PROC: 01NR0ZZ Release Sacral Nerve, Open Approach (ICD-10-PCS; 2021-07-24)
PROC: 0SB40ZZ Excision of Lumbosacral Disc, Open Approach (ICD-10-PCS; 2021-07-24)
DX: M48.062 Spinal stenosis, lumbar region with neurogenic claudication (principal); M51.16 Intervertebral disc disorders with radiculopathy, lumbar region; Z20.822 Contact with and (suspected) exposure to COVID-19; I10 Essential (primary) hypertension; E78.5 Hyperlipidemia, unspecified; I25.10 Atherosclerotic heart disease of native coronary artery without angina pectoris; N40.0 Benign prostatic hyperplasia without lower urinary tract symptoms; F17.210 Nicotine dependence, cigarettes, uncomplicated; Z88.8 Allergy status to other drugs, medicaments and biological substances; Z95.5 Presence of coronary angioplasty implant and graft; Z95.1 Presence of aortocoronary bypass graft; Z79.82 Long term (current) use of aspirin; Z79.899 Other long term (current) drug therapy
CPT/HCPCS: 36415; 51701; 51798; 76000; 80048; 85025; 93970; 96365; 96375; 96376; C1713; G0378; J0690; J1170; J1885; J2270; J2405; J2704; J3010; J3370; J3490; J7050